=== PATIENT | female | born 1980 | race Caucasian/White ===

== ENCOUNTER 2016-09-02 18:19 | Emergency (ER) | payer SELFPAY ==
[~2016-09-02] VITALS: Ht 157.5 cm; Wt 60.3 kg
[2016-09-02 18:33] VITALS: BP 144/93; PULSE 108; RESP 16; TEMP 99.4; O2SAT 99
--- NOTE | 2016-09-02 18:41 | PD ---
HPI . burning blister on left buttocks x 5 days Chief Complaint: Skin Problem Time Seen by Provider: 18:41 Travel History International Travel<30 days: No Contact w/Intl Traveler<30days: No Traveled to known affect area: No History of Present Illness HPI 36 yr old female with history of COPD not on medications here with complaints of a spot on her left buttocks that has been present for 5 days. Patient reports that it is burning like fire and she noticed a few more little blisters popping up. She initially thought it was a abscess but states it never filled up with fluid as she believed it was supposed to. She is here because she can' t take a burning discomfort is going on. She denies any fever, chills, cold symptoms, shortness of breath, chest pain, nausea, vomiting, diaphoresis, diarrhea, constipation or abdominal pain. She has no weakness or fatigue. PFSH Past Medical History COPD: Yes Diminished Hearing: No Respiratory: Yes (COPD) Seizures: Yes LMP: 08/28/16 Past Surgical History Section: Yes Genitourinary Surgery: Yes ( A CHILD) Social History Alcohol Use: Yes (VERY RARE) Tobacco Use: No Substance Use: No Allergies-Medications (Allergen,Severity, Reaction): Coded Allergies: No Known Allergies (Verified , 09/02/16) Reported Meds & Prescriptions Reported Meds & Active Scripts Active Keflex (Cephalexin) 500 Mg Cap 500 Mg PO Q6H Bactrim DS (Sulfamethoxazole-Trimethoprim) 800-160 Mg Tab 1 Tab PO BID Acyclovir 800 Mg Tab 800 Mg PO 5 TIMES A DAY 7 Days Review of Systems General / Constitutional: No: Fever Eyes: No: Visual changes HENT: No: Headaches Cardiovascular: No: Chest Pain or Discomfort Respiratory: No: Shortness of Breath Gastrointestinal: No: Abdominal Pain Genitourinary: No: Dysuria Musculoskeletal: No: Pain Skin: Positive Itching, Positive Lesions (left buttocks), No Rash Neurologic: No: Weakness Psychiatric: No: Depression Endocrine: No: Polydipsia Hematologic/Lymphatic: No: Easy Bruising Physical Exam Narrative GENERAL: AAO x 3, no acute distress, Well-nourished, well-developed patient. SKIN: Warm and dry. No bruising. there is an open blister on left buttocks with small surround blisters. There is one area that appears to have several small blisters coalesced into a larger blister that is now scabbed and has surrounding erythema and mildly warm to touch. HEAD: Normocephalic and atraumatic. EYES: No scleral icterus. No injection or drainage. ENT: No nasal drainage noted. Mucous membranes pink. Airway patent. NECK: Supple, trachea midline. No JVD. CARDIOVASCULAR: Regular rate and rhythm without murmurs, gallops, or rubs. RESPIRATORY: Breath sounds equal bilaterally. No accessory muscle use. No rhonchi or rales. GASTROINTESTINAL: Abdomen soft, non-tender, nondistended. EXTREMITIES: No cyanosis or edema. BACK: Nontender without obvious deformity. No CVA tenderness. PSYCH: AAO x 3, normal affect. Data Data Last Documented VS Vital Signs Date Time Temp Pulse Resp B/P Pulse Ox O2 Delivery O2 Flow Rate FiO2 09/02/16 18:33 99.4 108 16 144/93 99 MDM Medical Decision Making Medical Screen Exam Complete: Yes Emergency Medical Condition: Yes Medical Record Reviewed: Yes (2016 for pelvic pain, dysuria) Differential Diagnosis herpes zoster, cellulitis, less likely abscess formation Narrative Course 36 yr old female with history of COPD not on medications here with complaints of a spot on her left buttocks that has been present for 5 days. Patient reports that it is burning like fire and she noticed a few more little blisters popping up. She initially thought it was a abscess but states it never filled up with fluid as she believed it was supposed to. She is here because she can' t take a burning discomfort is going on. She denies any fever, chills, cold symptoms, shortness of breath, chest pain, nausea, vomiting, diaphoresis, diarrhea, constipation or abdominal pain. She has no weakness or fatigue. Patient seen and examined. Exam is remarkable for what appears to be shingles and surrounding cellulitis. Cellulitis is very mild. Discussed with patient. Although she is out of the timeframe for antivirals there are some smaller blisters forming therefore we will proceed with antiviral and antibiotics. I advised her that she could use [id number] anti-itch lotion for pruritus relief. Patient verbalized understanding of instructions, questions were answered, and thanked me for their care. I advised them if their condition worsens, please return to the nearest emergency room for further care. Diagnosis Primary Impression: Shingles Qualified Code: B02.9 - Herpes zoster without complication Additional Impression: Cellulitis of buttock, left Patient Instructions: Cellulitis (ED), General Instructions, Shingles (ED) Additional Instructions: Please return to emergency department if your symptoms return or worsen. Follow up with your primary care provider. Take medications as prescribed. If you notice area worsening with any increased redness, increased warmth, pus like drainage or streaking, please return to the emergency room immediately. Med/Other Pt SpecificInfo: Prescription(s) given Scripts Cephalexin (Keflex)500 Mg [id number] Mg PO Q6H #28 CAP Ref 0 Prov:Piedad Benavides 09/02/16 Sulfamethoxazole-Trimethoprim (Bactrim DS)800-160 Mg Tab1 Tab PO BID #20 TAB Ref 0 Prov:Piedad Benavides 09/02/16 Acyclovir 800 Mg [id number] Mg PO 5 TIMES A DAY 7 Days Ref 0 Prov:Piedad Benavides 09/02/16 Disposition: 01 DISCHARGE HOME Condition: Stable Piedad Benavides Sep 02, 2016 18:41
[2016-09-02] MEDS ORDERED: ACYC800T PO (18:53)
[2016-09-02] MEDS ORDERED: BACT800T5 PO (18:53)
[2016-09-02] MEDS ORDERED: CEPH-460 PO (18:53)
== END 2016-09-02 19:03 | disposition home or self-care (01) ==
LOC: PHEFT 18:19
DX: B02.9 Zoster without complications (principal); L03.317 Cellulitis of buttock
CPT/HCPCS: 99282